=== PATIENT | female | born 1980 | race Caucasian/White ===

== ENCOUNTER 2017-03-05 21:10 | Emergency (ER) | payer OTHER ==
[2017-03-06 00:20] VITALS: BP 146/101
== END 2017-03-06 00:20 | disposition home or self-care (01) ==
LOC: ED 21:10
DX: S60.222A Contusion of left hand, initial encounter (principal); W19.XXXA Unspecified fall, initial encounter; Y93.89 Activity, other specified; Y92.89 Other specified places as the place of occurrence of the external cause; Y99.8 Other external cause status
CPT/HCPCS: J1885

== ENCOUNTER 2019-03-12 12:15 | Emergency (ER) | payer SELFPAY ==
[~2019-03-12] VITALS: Ht 160 cm; Wt 78.0 kg
[2019-03-12 12:33] VITALS: Ht 160 cm; Wt 78.0 kg
[2019-03-12 14:05] LABS: PLATELET COUNT 218 x10^3mcL (130-400); RED CELL DISTRIBUTION WIDTH 13.5 % (11.5-14.5)
[2019-03-12 14:13] LABS: CALCIUM 9.1 mg/dL (8.5-10.1); CARBON DIOXIDE 27.6 mmol/L (21-32); CHLORIDE SERUM 102 mmol/L (98-107); CREATININE SERUM 0.9 mg/dL (0.6-1.0); GFR1 > 60 mL/min; GLUCOSE SERUM 159 mg/dL (74-106); POTASSIUM SERUM 3.4 mmol/L (3.5-5.1); SODIUM SERUM 138 mmol/L (136-145)
[2019-03-12 14:14] LABS: BASOPHIL % 0 % (0-2)
[2019-03-12 14:17] LABS: ALBUMIN 3.4 g/dL (3.4-5.0); ALKALINE PHOSPHATASE 137 U/L (46-116); ALT/SGPT 102 U/L (14-59); AST/SGOT 49 U/L (15-37); CHOLESTEROL 143 mg/dL (<200); CHOLESTEROL/HDL RATIO 3.6; HDL CHOLESTEROL 40 mg/dL (40-60); LIPASE 65 IU/L (73-393); TOTAL PROTEIN, SERUM 7.8 g/dL (6.4-8.2); TRIGLYCERIDES 76 mg/dL (<150)
[2019-03-12 14:28] LABS: UA SPECIFIC GRAVITY <=1.005 (1.005-1.035); microscopic required? YES; urine erythrocyte TRACE (NEGATIVE)
[2019-03-12 14:51] LABS: FREE T4 1.07 ng/dL (0.76-1.46); FREE THYROXINE INDEX 2.7 ug/dL (1.4-4.5); T4(THYROXINE) 9.2 ug/dL (4.7-13.3)
[2019-03-12 15:43] LABS: T3 TOTAL 1.25 ng/mL
[2019-03-12 18:49] VITALS: BP 104/52
== END 2019-03-12 18:49 | disposition home or self-care (01) ==
LOC: ED 12:15
PROVIDERS: Specialist
DX: N10 Acute pyelonephritis (principal); R07.89 Other chest pain; M54.6 Pain in thoracic spine
CPT/HCPCS: 36600; 83880; 84439; J0696; J1885; J7030; J7060; Q9967